=== PATIENT | female | born 1995 | race Caucasian/White ===

== ENCOUNTER 2020-04-11 02:08 | Inpatient (IN) ==
[2020-04-11 02:22] VITALS: BMI 27.3
[2020-04-11 03:11] LABS: BILIRUBIN,URINE NEGATIVE (NEGATIVE); BLOOD/HEMOGLOBIN,URINE NEGATIVE (NEGATIVE); GLUCOSE, URINE NEGATIVE (NEGATIVE); KETONES,URINE NEGATIVE (NEGATIVE); LEUKOCYTE ESTERASE ,URINE NEGATIVE (NEGATIVE); NITRITES,URINE NEGATIVE (NEGATIVE); PROTEIN,URINE NEGATIVE (NEGATIVE); UROBILINOGEN,URINE NORMAL (NORMAL)
[2020-04-11 03:16] LABS: APPEARANCE,URINE CLEAR (CLEAR); COLOR,URINE PALE YELLOW (YELLOW)
[2020-04-11] MEDS ORDERED: D5LR 1L W PITOCIN 10 UNITS/L 10 UNITS/1,000 ML BAG IV PRN (03:42)
[2020-04-11] MEDS ORDERED: PHENERGAN INJ 25 MG IM PRN ×2 (03:42→08:12)
[2020-04-11] MEDS ORDERED: PITOCIN IVP ONE (03:42)
[2020-04-11] MEDS ORDERED: REGLAN INJ 10 MG VIAL IVP PRN (03:42)
[2020-04-11] MEDS ORDERED: BETADINE SOLN ONE (03:47)
[2020-04-11] MEDS ORDERED: D5 1/2 NS 1L W PITOCIN 20 UNITS/L 20 UNITS/1,000 ML BAG IV ONE (03:48)
[2020-04-11] MEDS ORDERED: AMPICILLIN VIAL 2 GRAM 2 G in NS 100 ML IV + SPIKE MINIBAG* 100 ML IV SCH (04:00)
[2020-04-11] MEDS ORDERED: D5 1/2 NS 1000 ML 1,000 ML IV SCH (04:00)
[2020-04-11] MEDS ORDERED: NS 100 ML IV 100 ML IV ONE (04:07)
[2020-04-11] MEDS ORDERED: AMPICILLIN VIAL 2 GRAM ONE (04:07)
[2020-04-11 04:16] LABS: HEMOGLOBIN 12.6 g/dL (12.0-16.0); MEAN CORPUSCULAR VOLUME 92.4 fL (80.0-100.0)
[2020-04-11 04:17] LABS: BLOOD UREA NITROGEN 9 mg/dL (7-18); CALCIUM 8.9 mg/dL (8.5-10.1); CARBON DIOXIDE 22.1 mmol/L (21-32); CHLORIDE 101 mmol/L (98-107); SODIUM 135 mmol/L (136-145); eGFR NON BLACK RACES > 60 (>60)
[2020-04-11 04:27] LABS: BASOPHILS # (AUTO) 0.1 X10^3/uL (0.0-0.1); BASOPHILS % (AUTO) 0.3 % (0.2-1.0); EOSINOPHILS # (AUTO) 0.1 x10^3/uL (0.0-0.2); EOSINOPHILS % (AUTO) 0.3 % (0.9-2.9); HEMATOCRIT 37.6 % (36.0-47.0); LYMPHOCYTES # (AUTO) 1.9 X10^3/uL (1.3-2.9); LYMPHOCYTES % (AUTO) 9.3 % (21.0-51.0); MEAN CORPUSCULAR HGB CONC 33.6 g/dL (33.0-35.0); MEAN PLATELET VOLUME 9.1 fL (7.4-11.0); MONOCYTES % (AUTO) 4.8 % (0.0-13.0); NEUTROPHILS # (AUTO) 17.8 x10^3/uL (2.2-4.8); NEUTROPHILS % (AUTO) 85.3 % (42.0-75.0); PLATELET COUNT 149 X10^3/uL (150.0-450.0); RED BLOOD COUNT 4.07 X10^6/uL (3.5-5.4); WHITE BLOOD COUNT 20.8 X10^3/uL (3.6-10.0)
--- NOTE | 2020-04-11 04:40 | DR.OB ---
OB Quick Note - Assessment/Plan Assessment/Plan: L&D 04/11/20 at 4:30am S-No complaint except labor. O-Afebrile,VSS OFE=213 with good LTV, +accel, no decel. CTX=q 1 1/2 to 3 min., mild to moderate by palpation CVX=4-5cm/75%/0/VTX AROM with clear fluid. IUPC and FSE placed. A-IUP at 38 2/7 weeks in active labor +GBS P-Begin pitocin augmentation as needed. IV ABX in labor Anticipate
[2020-04-11] MEDS ORDERED: STADOL INJ IVP PRN (05:18)
[2020-04-11] MEDS ORDERED: XYLOCAINE 1 % (PLAIN) ONE (07:45)
[2020-04-11] MEDS: D5 1/2 NS 1000 ML 1,000 ML with PITOCIN 20 UNITS IV SCH ×4 (07:50→19:21)
[2020-04-11] MEDS ORDERED: AMPICILLIN VIAL 1 GRAM 1 G in NS 50 ML IV + SPIKE MINIBAG* 50 ML IV SCH (08:00)
[2020-04-11] MEDS ORDERED: MOTRIN TAB 800 MG PO PRN (08:12)
--- NOTE | 2020-04-11 08:12 | DR.OB ---
OB Quick Note - Assessment/Plan Assessment/Plan: Delivery Note PLUGGER 04/11/20 at 7:39am Patient complete and pushing. Head delivered over midline episiotomy. No nuchal cord. Nose and mouth bulb suctioned. Body delivered over intact perineum. Cord clamped x 2 and cut. handed to attendant. Cord sent for gases. Placenta delivered spontaneously / intact / 3 vessel cord. No CVX tears. A second degree small midline episiotomy repaired with 0-vicryl in usual fashion. Viable female infant, VTX/OA, wt=5'3" and 8/9, stable to NBN. Mother stable to RR. IXL=[id number].
[2020-04-11] MEDS ORDERED: DERMOPLAST PAIN RELIEF SPRAY TOP PRN (09:00)
[2020-04-11] MEDS ORDERED: AMBIEN PO PRN (09:00)
[2020-04-11] MEDS ORDERED: MILK OF MAGNESIA PO PRN (09:00)
[2020-04-11] MEDS ORDERED: ADACEL or BOOSTRIX TDaP VACCINE IM ONE (09:00)
[2020-04-11] MEDS: PRENATAL PLUS PO SCH (15:30)
[2020-04-12 04:07] LABS: HEMATOCRIT 33.6 % (36.0-47.0); HEMOGLOBIN 11.5 g/dL (12.0-16.0)
[2020-04-12] MEDS: D5 1/2 NS 1000 ML 1,000 ML with PITOCIN 20 UNITS IV SCH ×2 (06:06)
[2020-04-12] MEDS: PRENATAL PLUS PO SCH (08:50)
--- NOTE | 2020-04-12 11:49 | DR.OB ---
OB Quick Note - Assessment/Plan Assessment/Plan: L&D 04/12/20 at 11:45am Pitocin=12mu/min. S-No complaint. s/p epidural. O-Afebrile,VSS CFI=653 with good LTV, +accel, no decel. CTX=q 1 1/2 to 2 min., about 45-65mmHg CVX=3cm/75%/0 A-IUP at 39 1/7 weeks for induction P-Cont. pitocin induction Anticipate
[2020-04-12 14:09] VITALS: BP 116/60
== END 2020-04-12 15:10 | disposition home or self-care (01) | DRG 807 ==
LOC: ER 02:08 → LD 03:31 → MED/SURG 08:51
PROVIDERS: ADMIT Specialist; ATTEND Specialist
DX: O99.824 Streptococcus B carrier state complicating childbirth; Z3A.38 38 weeks gestation of pregnancy; B95.1 Streptococcus, group B, as the cause of diseases classified elsewhere; O70.1 Second degree perineal laceration during delivery; Z37.0 Single live birth